=== PATIENT | female | born 1930 | race Caucasian/White ===

== ENCOUNTER 2016-09-12 15:53 | Inpatient (IN) | payer OTHER ==
[~2016-09-12] VITALS: Ht 165.1 cm; Wt 70.3 kg
--- NOTE | ~2016-09-12 | D ---
[facility] [place] [address] [address] DISCHARGE SUMMARY Name: TIBURCIO LOVING Room #: 536-P ADM IN M.R.#: [id number] Admission: 09/12/16 Attend Phys: Gino Callejas MD Discharge: Date of : 32 Report #: [id number] THIS REPORT FOR: //name// CC: Gino Callejas FINAL DIAGNOSES: 1. Chronic obstructive pulmonary disease. 2. Alzheimer disease. HOSPITAL COURSE: The patient was admitted from the office with confusion and weakness. Lab and CT were unremarkable. Chest x-ray was fairly clear. She was found to be hypoxic during the day on room air with ABG showing pO2 in the mid 50s. She had a compensated respiratory acidosis with normal pH, but pCO2 55 as well. She was placed on 1-1/2 liters during the day, and her symptoms improved. Nursing notes revealed she was alert and sitting up, eating well, and communicative. She was pleasantly forgetful. Urinalysis was negative for infection. PHYSICAL EXAMINATION: GENERAL: On the day of discharge, she was resting in bed, pleasantly confused, in no distress. VITAL SIGNS: Stable. LUNGS: Clear with no wheezing. HEART: Regular sounds. ABDOMEN: Soft. EXTREMITIES: No edema. REVIEW OF DATA: Also of note, her TSH was high, and her dose was adjusted. DISPOSITION AND INSTRUCTIONS: To be discharged to home with diet and activity as tolerated. She will be on oxygen at 1.5 liters continuously. All medicines are the same with the exception of Levoxyl changing to 137 mcg daily. Follow up with me in 2 weeks. <ELECTRONICALLY SIGNED> By: Gino Callejas MD 09/15/16 0742 0812 1834 Gino Callejas MD /nt
--- NOTE | ~2016-09-12 | H ---
[facility] [place] [address] HISTORY AND PHYSICAL Name: TIBURCIO LOVING Room #: 536-P ADM IN M.R.#: [id number] Admission: 09/12/16 Attend Phys: Gino Callejas MD Discharge: Date of : 32 Report #: [id number] THIS REPORT FOR: //name// CC: Gino THORNE physician/PCP CHIEF COMPLAINT: Weakness. HISTORY OF PRESENT ILLNESS: The patient is an 86-year-old female who was admitted from the office today for evaluation of weakness and poor intake. Her daughter was present with her when I saw her about a week ago and treated her for urinary tract infection. Urinalysis had a few nitrites and white blood cells, but nothing drastic. However, her daughter says in the last week, she has been sleeping more, lying in bed. She does not want to get up and do anything, and she has had loss of appetite. In the office, she was awake and alert, but just seemed very tired. She was leaning back in the wheelchair and just seemed disinterested in the visit. We had a problem with this about 6 or 8 months ago when she moved from her home in [place] to assisted living facility, [facility], to be closer to her daughter. After a lab workup and multiple visits and adjustment of Zoloft, she seemed to improve and stabilize. She does have a history of dementia. PAST MEDICAL HISTORY: Alzheimer disease, COPD, depression, hypothyroidism. PAST SURGICAL HISTORY: She has had knee surgery in 2005. FAMILY HISTORY: Noncontributory. SOCIAL HISTORY: She has got a 49-hnpu-yako history of smoking, but quit. No chronic alcohol use. ALLERGIES: SULFA. MEDICATIONS: Breo Ellipta ____ 1 puff daily, Synthroid 100 mcg, aspirin 81 mg, oxygen 1.5 liters at night, vitamin D, calcium, Aleve, Namzaric 28/10 mg daily, Zoloft 100 mg a day, and she completed a course of nitrofurantoin. REVIEW OF SYSTEMS: She complains of just weakness and lack of energy. Denies headache, chest pain, shortness of breath, myalgias, arthralgias, syncope or fall. OBJECTIVE: VITAL SIGNS: Blood pressure 137/81, temperature 98.5, pulse 70, and O2 sat 91% on room air. GENERAL: She was awake and alert, in no distress. HEAD AND NECK: Unremarkable. LUNGS: Distant but clear. [facility] [address] [place] [address] HISTORY AND PHYSICAL Name: TIBURCIO LOVING Room #: 536-P [facility]#: [id number] Admission: 09/12/16 Attend Phys: Gino Callejas MD Discharge: Date of : 32 Report #: [id number] HEART: Regular, no murmur. ABDOMEN: Soft, normoactive bowel sounds. EXTREMITIES: No edema. NEUROLOGIC: Global strength 3/5 throughout. ASSESSMENT: 1. Altered mental status. 2. Generalized weakness. 3. Chronic obstructive pulmonary disease, on oxygen at night. 4. Alzheimer disease. 5. Disuse myopathy. 6. Hypothyroidism. PLAN: Lab and x-ray will be obtained. We will ask for a CT of the head to rule out a vascular process. Other home medications to continue and IV fluids. SCDs for DVT prophylaxis at this point. <ELECTRONICALLY SIGNED> By: Gino Callejas MD 09/14/16 0749 1613 1814 Gino Callejas MD /nt
--- NOTE | ~2016-09-12 | EKG ---
[address] [address] ELECTROCARDIOGRAM REPORT Name: TIBURCIO LOVING Room #: 536-P ADM IN M.R.#: [id number] Admission: 09/12/16 Attend Phys: Gino Callejas MD Discharge: Date of : 32 Report #: [id number] THIS REPORT FOR: //name// [facility] Test Date: 2016-09-12 Test Time: 16:47:15 Pat Name: TIBURCIO LOVIGN Department: Room: 536 Gender: F Nutrition Program Instructor: MORGAN : 1930 Requested By: Gino Callejas Order Number: [id number] MD: Bowen Gong Measurements Intervals [place] Rate: 68 P: 34 MI: 142 QRS: -58 QRSD: 96 T: 135 QT: 472 QTc: 503 Interpretive Statements Sinus rhythm Inferior infarct, old Probable anterior infarct, age indeterminate Prolonged QT interval Compared to ECG 04/05/2016 18:04:37 Prolonged QT interval now present Electronically Signed On 09-14-2016 13:50:05 CDT by Bowen Gong [email or web address] <ELECTRONICALLY SIGNED> By: Bowen Gong MD, [facility] 09/14/16 1350 1647 164 Bowen Gong MD, [facility] /EPI
[~2016-09-12 15:53] MED LIST: BREO ELLIPTA 21 EACH IH; KEFLEX500 MG PO; LEVOTHYROXINE 0.1 MG PO; LIPITOR10 MG PO; LO-DOSE ASPIRIN81 M1 PO; NAMZARIC 14 MG1 EACH PO; OXYGEN NASAL; SERTRALINE HCL50 MG PO; VITAMIN D3400 UNIT PO
[2016-09-12 17:03] LABS: ABSOLUTE NEUTROPHILS 6.6 thou/uL (1.4-8.2); BASOPHILS 0.9 % (0.0-2.0); EOSINOPHILS 3.6 % (0.0-3.0); HEMATOCRIT 44.9 % (37.0-47.0); HEMOGLOBIN 15.2 gm/dL (12.0-15.0); LYMPHOCYTES 11.5 % (24.0-44.0); MANUAL DIFF NO; MCH 30.4 pg (26.0-34.0); MCHC 33.8 g/dL (28.0-37.0); MCV 89.9 fL (80.0-100.0); MONOCYTES 6.2 % (1.0-8.0); PLATELET COUNT 268 thou/uL (150-400); POLYS 77.8 % (36.0-66.0); RDW 13.7 % (10.5-14.5); WBC 8.5 thou/uL (4.0-11.0)
[2016-09-12 17:19] LABS: ALBUMIN 3.8 g/dL (3.4-5.0); ALKALINE PHOSPHATASE 127 U/L (46-116); ANION GAP 5 mmol/L (7-16); BUN 11 mg/dL (7-18); CALCIUM 9.2 mg/dL (8.5-10.1); CHLORIDE 105 mmol/L (98-107); CO2 32 mmol/L (21-32); CREATININE 0.9 mg/dL (0.6-1.0); GLUCOSE 110 mg/dL (74-106); POTASSIUM 3.7 mmol/L (3.5-5.1); SGOT 17 U/L (15-37); SGPT 18 U/L (30-65); SODIUM 142 mmol/L (136-145); TOTAL BILIRUBIN 0.7 mg/dL (<0.1-1.0); TOTAL PROTEIN 7.1 g/dL (6.4-8.2); TROPONIN-I < 0.04 ng/mL (<0.04-0.07)
[2016-09-12 19:08] VITALS: BP 138/60
[2016-09-13 05:08] VITALS: BP 99/78
[2016-09-13 06:21] LABS: URINE BILIRUBIN NEGATIVE (Negative); URINE BLOOD NEGATIVE (Negative); URINE COLOR YELLOW; URINE GLUCOSE-RANDOM* NEGATIVE (Negative); URINE KETONES NEGATIVE (Negative); URINE LEUKOCYTES-REFLEX NEGATIVE (Negative); URINE PROTEIN (DIPSTICK) NEGATIVE (Negative); URINE SPECIFIC GRAVITY <= 1.005 (1.003-1.035); URINE UROBILINOGEN 0.2 E.U./dl (0.2-1.0)
[2016-09-13 06:35] LABS: CALCIUM 8.7 mg/dL (8.5-10.1); CREATININE 0.8 mg/dL (0.6-1.0); POTASSIUM 3.6 mmol/L (3.5-5.1)
[2016-09-13 07:12] VITALS: BP 149/58
[2016-09-13 11:56] LABS: ABG SAMPLE TYPE ARTERIAL; BE(vivo) 5.7 mmol/L (-2 to +3); HCO3 31.5 mmol/L (22.0-26.0); LACTATE 1.62 mmol/L (0.5-2.0); O2(CT) 17.3 mL/dL (15.0-23.0); O2Hb 89.7 % (92.0-98.0); PCO2 50.2 mmHg (35.0-45.0); PO2 57.9 mmHg (80.0-100.0); pH 7.415 (7.360-7.450); sO2 90.1 % (92.0-98.0)
[2016-09-13 11:57] LABS: STICK SITE R.RADIAL
[2016-09-13 12:15] VITALS: BP 133/70
[2016-09-13 17:21] VITALS: BP 99/66
[2016-09-13 19:41] VITALS: BP 122/64
[2016-09-14 02:58] VITALS: BP 122/49
[2016-09-14 07:26] VITALS: BP 147/46
[2016-09-14] MEDS ORDERED: LEVOTHYROXIN0.137 M1 PO (07:45)
[2016-09-14 14:48] VITALS: BP 118/47
[2016-09-14 19:45] VITALS: BP 138/51
[2016-09-15 03:55] VITALS: BP 129/60
[2016-09-15] MEDS ORDERED: ZOLOFT 50 MG TA50 M1 PO (07:45)
[2016-09-15 09:00] VITALS: BP 130/64
[2016-09-15 09:52] VITALS: BP 130/64
== END 2016-09-15 13:19 | disposition home health service (06) | DRG 190 ==
LOC: 5S 15:53
PROVIDERS: Internal Medicine Geriatric Medicine
DX: J44.9 Chronic obstructive pulmonary disease, unspecified (principal); G93.41 Metabolic encephalopathy; E87.2 Acidosis; R53.1 Weakness; G30.9 Alzheimer's disease, unspecified; R09.02 Hypoxemia; F32.9 Major depressive disorder, single episode, unspecified; E03.9 Hypothyroidism, unspecified; F02.80 Dementia in other diseases classified elsewhere, unspecified severity, without behavioral disturbance, psychotic disturbance, mood disturbance, and anxiety; G72.9 Myopathy, unspecified; Z87.440 Personal history of urinary (tract) infections; Z88.2 Allergy status to sulfonamides; Z87.891 Personal history of nicotine dependence; Z79.82 Long term (current) use of aspirin; Z79.899 Other long term (current) drug therapy
CPT/HCPCS: 10785

== ENCOUNTER 2017-01-11 11:30 | Emergency (ER) | payer OTHER ==
[~2017-01-11] VITALS: Ht 165.1 cm; Wt 68.0 kg
[~2017-01-11 11:30] MED LIST changes: +LEVOTHYROXIN0.137 M1 PO; +ZOLOFT 50 MG TA50 M1 PO
[2017-01-11] MEDS ORDERED: VITAMIN D1000 UNI1 PO (11:47)
[2017-01-11] MEDS ORDERED: SERTRALINE HCL50 MG PO (11:47)
[2017-01-11] MEDS ORDERED: SYNTHROID100 MCG PO (11:47)
[2017-01-11] MEDS ORDERED: TUMS PO (11:48)
== END 2017-01-11 12:48 | disposition home or self-care (01) ==
LOC: ER 11:30
DX: S00.83XA Contusion of other part of head, initial encounter (principal); S80.02XA Contusion of left knee, initial encounter; F03.90 Unspecified dementia, unspecified severity, without behavioral disturbance, psychotic disturbance, mood disturbance, and anxiety; F32.9 Major depressive disorder, single episode, unspecified; I10 Essential (primary) hypertension; E78.00 Pure hypercholesterolemia, unspecified; J44.9 Chronic obstructive pulmonary disease, unspecified; F10.99 Alcohol use, unspecified with unspecified alcohol-induced disorder; Z88.2 Allergy status to sulfonamides; W18.30XA Fall on same level, unspecified, initial encounter; Y93.89 Activity, other specified; Y92.89 Other specified places as the place of occurrence of the external cause; Y99.8 Other external cause status

== ENCOUNTER 2018-03-28 11:43 | Emergency (ER) | payer OTHER ==
[~2018-03-28] VITALS: Ht 165.1 cm; Wt 56.7 kg
--- NOTE | ~2018-03-28 | EKG ---
[address] [address] ELECTROCARDIOGRAM REPORT Name: TIBURCIO LOVING Room #: REG [facility]#: [id number] Admission: 03/28/18 Attend Phys: Discharge: Date of : 32 Report #: [id number] THIS REPORT FOR: //name// [facility] ED Test Date: 2018-03-28 Test Time: 13:02:50 Pat Name: TIBURCIO LOVING Department: Room: Gender: F Greeting Card Maker: .... : 1930 Requested By: Sushila Moser Order Number: [id number] MD: Wan Bowers Measurements Intervals [place] Rate: 63 P: 30 RI: 153 QRS: -71 QRSD: 100 T: 96 QT: 467 QTc: 479 Interpretive Statements Sinus rhythm Inferior infarct, old Probable anterior infarct, age indeterminate Compared to ECG 09/12/2016 16:47:15 Prolonged QT interval no longer present Myocardial infarct finding still present Electronically Signed On 03-28-2018 20:49:30 TOWER CLEANER by Wan Bowers [email or web address] <ELECTRONICALLY SIGNED> By: Wan Bowers MD 03/28/18 2049 130 01 Wan Bowers MD /EPI
[~2018-03-28 11:43] MED LIST changes: +SYNTHROID100 MCG PO; +TUMS PO; +VITAMIN D1000 UNI1 PO
[2018-03-28 12:26] LABS: BASOPHILS 0.7 % (0.0-2.0); EOSINOPHILS 3.3 % (0.0-3.0); HEMATOCRIT 44.6 % (37.0-47.0); HEMOGLOBIN 14.9 gm/dL (12.0-15.0); MCH 29.7 pg (26.0-34.0); MCHC 33.4 g/dL (28.0-37.0); MCV 89.1 fL (80.0-100.0); MONOCYTES 6.2 % (1.0-8.0); PLATELET COUNT 236 thou/uL (150-400); POLYS 62.8 % (36.0-66.0); RDW 13.3 % (10.5-14.5); WBC 6.3 thou/uL (4.0-11.0)
[2018-03-28 12:38] LABS: APTT 27.3 Seconds (24.5-32.8); PROTIME 10.3 Seconds (9.3-11.4)
[2018-03-28 14:45] LABS: URINE BILIRUBIN NEGATIVE (Negative); URINE BLOOD 1+ (Negative); URINE CLARITY SL CLOUDY; URINE COLOR YELLOW; URINE GLUCOSE-RANDOM* NEGATIVE (Negative); URINE KETONES NEGATIVE (Negative); URINE LEUKOCYTES 3+ (Negative); URINE NITRITE NEGATIVE (Negative); URINE PROTEIN (DIPSTICK) NEGATIVE (Negative); URINE SPECIFIC GRAVITY <= 1.005 (1.005-1.035); URINE UROBILINOGEN 0.2 E.U./dl (0.2-1.0)
[2018-03-28 14:51] LABS: SQUAMOUS 0-3 Few /LPF (0-3); URINE RBC 3-10 Few /HPF (0-2); URINE WBC >25 Many /HPF (0-5)
[2018-03-28 14:52] LABS: BACTERIA >30 Many /HPF (None Seen); CASTS None Seen /LPF (None Seen); CRYSTALS None Seen /LPF (None Seen)
[2018-03-28 15:37] LABS: CALCIUM 9.3 mg/dL (8.5-10.1); POTASSIUM 3.5 mmol/L (3.5-5.1)
[2018-03-28] MEDS ORDERED: ESCITALOPRAM OX20 MG PO (16:00)
[2018-03-28 22:13] VITALS: BP 149/59
== END 2018-03-28 22:14 | disposition short-term general hospital (02) ==
LOC: ER 11:43
PROVIDERS: Student in an Organized Health Care Education/Training Program
DX: I21.9 Acute myocardial infarction, unspecified (principal); R53.1 Weakness; H54.62 Unqualified visual loss, left eye, normal vision right eye; F03.90 Unspecified dementia, unspecified severity, without behavioral disturbance, psychotic disturbance, mood disturbance, and anxiety; F32.9 Major depressive disorder, single episode, unspecified; E78.00 Pure hypercholesterolemia, unspecified; J44.9 Chronic obstructive pulmonary disease, unspecified; I11.0 Hypertensive heart disease with heart failure; I50.30 Unspecified diastolic (congestive) heart failure; Z88.2 Allergy status to sulfonamides

== ENCOUNTER 2018-07-10 07:26 | Emergency (ER) | payer OTHER ==
[~2018-07-10] VITALS: Ht 160 cm; Wt 68.0 kg
[~2018-07-10 07:26] MED LIST changes: +ESCITALOPRAM OX20 MG PO
[2018-07-10] MEDS ORDERED: NORVASC2.5 MG PO (09:58)
[2018-07-10] MEDS ORDERED: LIPITOR 20 MG T20 M1 PO (09:58)
[2018-07-10] MEDS ORDERED: CLOPIDOGREL75 MG PO (09:59)
[2018-07-10] MEDS ORDERED: NAMZARIC 28 MG1 EACH PO (10:00)
[2018-07-10 10:16] VITALS: BP 167/69
--- NOTE | 2018-07-10 11:02 | EKG ---
[address] [address] ELECTROCARDIOGRAM REPORT Name: INDERTIBURCIO C Room #: [facility]#: [id number] ������������������ Admission: 07/10/18 ������������������ Attend Phys: Discharge: 07/10/18 ������������������ Date of : 32 Report #: [id number] ����������������������������������������������������������������� [id number] THIS REPORT FOR: //name// [facility] ED Test Date: 2018-07-10 Test Time: 07:57:57 Pat Name: TIBURCIO LOVING Department: Room: Gender: F Battery Tester Field: KELLI : 1930 Requested By: Usman Cook Order Number: [id number] MD: Flynn Michelle Measurements Intervals [place] Rate: 54 P: 0 NV: 134 QRS: -59 QRSD: 101 T: -10 QT: 677 QTc: 642 Interpretive Statements Sinus rhythm Inferior infarct, old Anteroseptal infarct, age indeterminate Prolonged QT interval Baseline wander in lead(s) I,aVL Compared to ECG 03/28/2018 13:02:50 Prolonged QT interval now present Myocardial infarct finding still present Electronically Signed On 07-10-2018 11:02:26 CDT by Flynn Michelle [email or web address] ��������������������������������������������� <ELECTRONICALLY SIGNED> ���������������������������������������� By: Flynn Michelle MD ��������������������������������������������� 07/10/18 1102 0757 0757 Flynn Michelle MD /EPI
== END 2018-07-10 10:20 | disposition home or self-care (01) ==
LOC: ER 07:26
DX: S01.81XA Laceration without foreign body of other part of head, initial encounter (principal); F03.90 Unspecified dementia, unspecified severity, without behavioral disturbance, psychotic disturbance, mood disturbance, and anxiety; F32.9 Major depressive disorder, single episode, unspecified; I10 Essential (primary) hypertension; E07.9 Disorder of thyroid, unspecified; E78.00 Pure hypercholesterolemia, unspecified; J44.9 Chronic obstructive pulmonary disease, unspecified; Z88.2 Allergy status to sulfonamides; W07.XXXA Fall from chair, initial encounter; Y93.89 Activity, other specified; Y92.89 Other specified places as the place of occurrence of the external cause; Y99.8 Other external cause status

== ENCOUNTER 2018-12-15 09:04 | Emergency (ER) | payer OTHER ==
[~2018-12-15] VITALS: Ht 165.1 cm; Wt 74.8 kg
--- NOTE | ~2018-12-15 | EMS ---
[address] [address] EMS Patient Care Report Name: TIBURCIO LOVING Room #: REG FR[facility]LIN Agarwal#: [id number] Admission: 12/15/18 Attend Phys: Discharge: Date of : 32 Report #: [id number] THIS REPORT FOR: //name// Report Transmitted: 12/15/2018 09:46 EMS Care Summary [place], [place]/[facility] Incident [phone] @ 12/15/2018 08:34 Incident Location [address] Patient TIBURCIO LOVING Female, 88 Years 1930 Patient Address [id number] [place] [address] [address] [id number] Patient History Dementia,Hypertension,Stroke/CVA,Hyperlipidemia,Urinary Tract Infection (UTI), Patient Allergies Sulfa, Patient Medications Atorvastatin, Clopidogrel, Levothyroxine, Amlodipine, Chief Complaint WEAKNESS Disposition Transported No Lights/[place] Dispatch Reason Unconscious/Fainting Transported To [facility] Narrative SCENE: ON ARRIVAL PT FOUND SITTING UPRIGHT ON LIVING ROOM FLOOR OF ADDRESS PROVIDED. P28 AND FACILITY STAFF ON SCENE. P28 REPORTS PT INITIAL OXYGEN SAT WAS 90% AND THEY PLACED PT ON NC AT 3LPM, RAISING HER OXYGEN SAT TO 99%. PT IS [address] [address] EMS Patient Care Report Name: TIBURCIO LOVING Room #: REG FRANKLIN Agarwal#: [id number] Admission: 12/15/18 Attend Phys: Discharge: Date of : 32 Report #: [id number] AWAKE AND ALERT WITH A GCS OF 13/14. 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 STAFF REPORTS PT HAS A HISTORY OF DEMENTIA WITH NO CHANGE IN MENTATION. PT C/O WEAKNESS AND NAUSEA FOR APPROXIMATELY ONE HOUR. [address] OBTAINED SHOWS NO [address] ELEVATION. PT ABLE TO STAND AND SIT ON EMS STRETCHER. AMBULANCE: NO HOSPITAL ON PT RECORD. EMS DID NOT SEE SUITABLE VEINS FOR IV. VITALS MONITORED THROUGHOUT TRANSPORT. NO CHANGES IN PT STATUS EN ROUTE. Initial Vitals @08:45P: 71,R: 16,BP: 92/57,GCS: 13,Revised Trauma: 12, @08:47P: 69,R: 18,BP: 102/69,GCS: 15,Glucose: 140,Revised Trauma: 12, @08:55P: 71,R: 18,BP: 135/57,Pain: 2/10,GCS: 14,Revised Trauma: 12, @08:48P: 69,R: 18,GCS: 13, Assessments @08:44MENTAL:Person Oriented,Event Oriented,SKIN:HEENT:Eyes: Left: Blind,Head/Face: No Abnormalities,Neck/Airway: No Abnormalities,LUNG SOUNDS:General: Nausea,ABDOMEN:General: Nausea,PELVIS//GI:No Abnormalities,EXTREMITIES:Left Arm: No Abnormalities,Right Arm: No Abnormalities,Left Leg: No Abnormalities,Right Leg: No Abnormalities,PULSE:NEURO:No Abnormalities,@08:57MENTAL:Event Oriented,Person Oriented,SKIN:HEENT:Eyes: Left: Blind,Head/Face: No Abnormalities,LUNG SOUNDS:General: Nausea,Left Upper: No Abnormalities,Right Upper: No Abnormalities,Left Lower: No Abnormalities,Right Lower: No Abnormalities,ABDOMEN:General: Nausea,Left Upper: No Abnormalities,Right Upper: No Abnormalities,Left Lower: No Abnormalities,Right Lower: No Abnormalities,PELVIS//GI:No Abnormalities,EXTREMITIES:Left Arm: No Abnormalities,Right Arm: No Abnormalities,Left Leg: No Abnormalities,Right Leg: No Abnormalities,PULSE:NEURO:No Abnormalities, Impression Generalized Weakness Procedures @08:43ALS AssessmentResponse: UnchangedSucceeded@09:073-Lead ECGResponse: UnchangedSucceeded@09:07StretcherResponse: Unchanged@08:4812-Lead ECG Timeline 08:33,Call Received 08:33,Dispatch Notified 08:34,Dispatched 08:35,En Route 08:41,On Scene 08:43,At Patient 08:43,ALS Assessment,Response: UnchangedSucceeded, 08:45,BP: 92/57 M,PULSE: 71,RR: 16 R,SPO2: Ox,ETCO2: ,BG: ,PAIN: ,GCS: 13, [facility] [address] [place] [address] EMS Patient Care Report Name: TIBURCIO LOVING Room #: REG Any#: [id number] Admission: 12/15/18 Attend Phys: Discharge: Date of : 32 Report #: [id number] 08:47,BP: 102/69 M,PULSE: 69,RR: 18 R,SPO2: Ox,ETCO2: ,B,PAIN: ,GCS: 15, 08:48,12-Lead ECG, 08:48,BP: / M,PULSE: 69,RR: 18 R,SPO2: Ox,ETCO2: ,BG: ,PAIN: ,GCS: 13, 08:55,BP: 135/57 M,PULSE: 71,RR: 18 R,SPO2: Ox,ETCO2: ,BG: ,PAIN: 2,GCS: 14, 08:55,Depart Scene 09:01,At Destination 09:07,3-Lead ECG,Response: UnchangedSucceeded, 09:07,Stretcher,Response: Unchanged 09:44,Call Closed Disclaimer v1.1 Copyright 2019 [employer] This EMS Care Summary contains data elements from the applicable legal record (which may be displayed differently). It is designed to provide pertinent information for the following purposes: continuity of care, clinical quality, and state data reporting. The complete legal record is available to ED staff and administrators of the receiving hospital in [employer]'s Patient Tracker. All data is provided "as is."
[~2018-12-15 09:04] MED LIST changes: +CLOPIDOGREL75 MG PO; +LIPITOR 20 MG T20 M1 PO; +NAMZARIC 28 MG1 EACH PO; +NORVASC2.5 MG PO
[2018-12-15 09:28] LABS: ABSOLUTE NEUTROPHILS 9.3 thou/uL (1.4-8.2); BASOPHILS 0.4 % (0.0-2.0); EOSINOPHILS 0.2 % (0.0-3.0); HEMATOCRIT 42.3 % (37.0-47.0); HEMOGLOBIN 14.2 gm/dL (12.0-15.0); MCH 30.3 pg (26.0-34.0); MCHC 33.5 g/dL (28.0-37.0); MCV 90.3 fL (80.0-100.0); MONOCYTES 4.3 % (1.0-8.0); PLATELET COUNT 214 thou/uL (150-400); POLYS 83.1 % (36.0-66.0); RBC 4.68 mil/uL (4.20-5.00); RDW 13.4 % (10.5-14.5); WBC 11.2 thou/uL (4.0-11.0)
[2018-12-15 09:37] LABS: ANION GAP 9 mmol/L (7-16); BUN 12 mg/dL (7-18); CALCIUM 9.3 mg/dL (8.5-10.1); CHLORIDE 102 mmol/L (98-107); CO2 29 mmol/L (21-32); CREATININE 1.1 mg/dL (0.6-1.0); GLUCOSE 159 mg/dL (74-106); POTASSIUM 3.8 mmol/L (3.5-5.1); SODIUM 140 mmol/L (136-145)
[2018-12-15 09:47] LABS: ALBUMIN 3.5 g/dL (3.4-5.0); MAGNESIUM 1.6 mg/dL (1.8-2.4); SGOT 17 U/L (15-37); SGPT 21 U/L (30-65); TOTAL BILIRUBIN 0.6 mg/dL (<0.1-1.0); TROPONIN-I <0.06 ng/mL (<0.06)
[2018-12-15 10:53] LABS: URINE BILIRUBIN NEGATIVE (Negative); URINE BLOOD TRACE (Negative); URINE CLARITY CLEAR; URINE COLOR YELLOW; URINE GLUCOSE-RANDOM* NEGATIVE (Negative); URINE KETONES NEGATIVE (Negative); URINE LEUKOCYTES-REFLEX TRACE (Negative); URINE NITRITE-REFLEX NEGATIVE (Negative); URINE PROTEIN (DIPSTICK) TRACE (Negative); URINE UROBILINOGEN 0.2 E.U./dl (0.2-1.0)
[2018-12-15 12:41] VITALS: BP 137/53
--- NOTE | 2018-12-16 08:30 | EKG ---
[address] [address] ELECTROCARDIOGRAM REPORT Name: [facility]URCIO L[facility]ING [id number] Admission: 12/15/18 Attend Phys: Discharge: 12/15/18 Date of : 32 Report #: [id number] THIS REPORT FOR: //name// [facility] ED Test Date: 2018-12-15 Test Time: 09:09:17 Pat Name: TIBURCIO LOVING Department: Room: Gender: F Basket Machine Operator: : 1930 Requested By: Nathaniel Mccarty Order Number: [id number] MD: Wan Bowers Measurements Intervals [place] Rate: 63 P: 49 AL: 148 QRS: -63 QRSD: 107 T: 128 QT: 544 QTc: 558 Interpretive Statements Sinus rhythm Inferior infarct, old Anterior infarct, age indeterminate Compared to ECG 07/10/2018 07:57:57 No significant changes Electronically Signed On 12-16-2018 8:29:48 CDT by Wan Bowers [email or web address] <ELECTRONICALLY SIGNED> By: Wan Bowers MD 12/16/18828 8 8 Wan Bowers MD /EARL
== END 2018-12-15 12:41 | disposition home or self-care (01) ==
LOC: ER 09:04
PROVIDERS: Emergency Medicine
DX: R55 Syncope and collapse (principal); R53.1 Weakness; F03.90 Unspecified dementia, unspecified severity, without behavioral disturbance, psychotic disturbance, mood disturbance, and anxiety; F32.9 Major depressive disorder, single episode, unspecified; I10 Essential (primary) hypertension; E78.00 Pure hypercholesterolemia, unspecified; J44.9 Chronic obstructive pulmonary disease, unspecified; Z88.2 Allergy status to sulfonamides

== ENCOUNTER 2020-04-14 15:43 | Inpatient (IN) | payer OTHER ==
[~2020-04-14] VITALS: Ht 162.6 cm; Wt 53.5 kg
[2020-04-14 15:54] VITALS: BP 130/61
[2020-04-14 16:42] LABS: URINE BLOOD 3+ (Negative); URINE CLARITY SL CLOUDY; URINE COLOR YELLOW; URINE GLUCOSE-RANDOM* NEGATIVE (Negative); URINE KETONES TRACE (Negative); URINE PROTEIN (DIPSTICK) 1+ (Negative); URINE SPECIFIC GRAVITY >= 1.030 (1.005-1.035); URINE UROBILINOGEN 0.2 E.U./dl (0.2-1.0)
[2020-04-14 16:54] LABS: ICTOTEST (BILI CONFIRMATORY) Negative (Negative); URINE BILIRUBIN NEGATIVE (Negative); URINE LEUKOCYTES-REFLEX 2+ (Negative); URINE NITRITE-REFLEX POSITIVE (Negative)
[2020-04-14 16:55] LABS: MUCUS >6 Heavy strn/LPF (None Seen); SQUAMOUS 4-10 Moderate /LPF (0-3)
[2020-04-14 16:56] LABS: CASTS None Seen /LPF (None Seen); CRYSTALS None Seen /LPF (None Seen); WBC CLUMPS Few (None Seen)
[2020-04-14 16:57] LABS: BACTERIA-REFLEX 1-9 Few /HPF (None Seen); RENAL EPITHELIAL CELLS 4-10 Moderate /LPF (None Seen); URINE RBC 3-10 Few /HPF (0-2)
[2020-04-14 17:49] LABS: ABSOLUTE NEUTROPHILS 4.1 thou/uL (1.4-8.2); BASOPHILS 0.8 % (0.0-2.0); HEMATOCRIT 40.8 % (37.0-47.0); HEMOGLOBIN 13.5 gm/dL (12.0-15.0); LYMPHOCYTES 26.2 % (24.0-44.0); MCH 30.4 pg (26.0-34.0); MCHC 33.2 g/dL (28.0-37.0); MCV 91.5 fL (80.0-100.0); MONOCYTES 6.6 % (1.0-8.0); PLATELET COUNT 238 thou/uL (150-400); POLYS 65.4 % (36.0-66.0); RBC 4.45 mil/uL (4.20-5.00); RDW 13.8 % (10.5-14.5); WBC 6.2 thou/uL (4.0-11.0)
[2020-04-14 17:56] LABS: ANION GAP 8 mmol/L (7-16); BUN 23 mg/dL (7-18); CALCIUM 9.2 mg/dL (8.5-10.1); CHLORIDE 107 mmol/L (98-107); CO2 27 mmol/L (21-32); GLUCOSE 82 mg/dL (74-106); POTASSIUM 3.9 mmol/L (3.5-5.1); SODIUM 142 mmol/L (136-145)
[2020-04-14 18:06] LABS: SGOT 16 U/L (15-37); SGPT 15 U/L (14-59); TOTAL BILIRUBIN 0.9 mg/dL (0.2-1.0); TOTAL PROTEIN 6.4 g/dL (6.4-8.2); TROPONIN-I <0.06 ng/mL (<0.06)
[2020-04-14 19:47] VITALS: BP 125/63
[2020-04-14 19:55] VITALS: BP 133/58
[2020-04-14 20:30] VITALS: BP 130/50
--- NOTE | 2020-04-15 03:54 | NUR ---
ADMIT PT ADMITTED TO ROOM 450 VIA ED FOR AMS AND UTI. PT LETHARGIC WILL NOT RESPOND TO QUESTIONS, OR COMMANDS. VITALS SIGNS STABLE. SKIN TEAR TO LEFT HAND PHOTOGRAPHED AND BARRIER CREAM APPLIED NO OPEN AREA NOTED, BILATERAL BUTTUCKS ARE RED THAT IS NOT BLANCHABLE PHOTOGRAPHED AND BARRIER CREAM APPLIED PT TURNED Q2HRS. IVF'S INFUSING ORDERED. WAS GIVEN ANTIBIOTICS IN ED. CONTINUE TO MONITOR.
[2020-04-15 08:00] VITALS: BP 137/58
--- NOTE | 2020-04-15 08:54 | EKG ---
[address] [address] ELECTROCARDIOGRAM REPORT Name: TIBURCIO LOVING Room #: 450-P ADM IN M.R.#: [id number] Admission: 04/14/20 Attend Phys: Chasity Bhat MD Discharge: Date of : 32 Report #: [id number] [facility] ED Test Date: 2020-04-14 Test Time: 17:08:28 Pat Name: TIBURCIO LOVING Department: Room: 450 Gender: F Naturalization Examiner: nasir : 1930 Requested By: Rylee Herbert Order Number: [id number] MD: Carl Judd Measurements Intervals [place] Rate: 59 P: 43 [place]: 145 QRS: -70 QRSD: 99 T: 83 QT: 532 QTc: 528 Interpretive Statements Sinus rhythm Inferior infarct, old Probable anterior infarct, age indeterminate Prolonged QT interval Compared to ECG 12/15/2018 09:09:17 Prolonged QT interval now present Myocardial infarct finding still present Electronically Signed On 04-15-2020 8:54:46 TOOL CRIB SUPERVISOR by Carl Judd [email or web address] <ELECTRONICALLY SIGNED> By: Carl Judd MD, [facility] 04/15/20 0854 07 07 Carl Judd MD, [facility] /EPI
[2020-04-15 15:42] VITALS: BP 133/61
[2020-04-15 19:08] VITALS: BP 135/66
--- NOTE | 2020-04-15 22:14 | NUR ---
ASSUMED CARE OF PT AT 0700. PT IS ALERT AND SLEEPING MOST OF THE SIFT. VITAL SIGNS ARE STABLE. IV TO RIGHT FOREARM RUNNING ORDERED FLUIDS. SPOKE WITH FAMILY IN AM AND PROVIDED UPDATE. PT HAD POOR DIETARY INTAKE AND REQUIRED TOTAL ASSIST WITH EATING. TURNS Q2H AND IS INCONTINENT OF BLADDER. FALL PRECAUTIONS IN PLACE AND NURSING WILL CONTINUE TO MONITOR.
--- NOTE | 2020-04-16 03:07 | NUR ---
PROGRESS PT AWAKE AND RESPONSIVE TODAY, EYES OPEN. SAT UP IN BED AND FED HERSELF HER DINNER NO SWALLOWING DIFFICULTY NOTED. PT DID NOT RESPOND VERBALLY BUT DID MAKE EYE CONTACT AND FOLLOWED COMMANDS WITH BED CHANGE. REMAINS INCONTINENT OF URINE NO BM THIS SHIFT CONTINUE POC.
[2020-04-16 07:22] VITALS: BP 154/67
[2020-04-16 09:04] LABS: EOSINOPHILS 1.8 % (0.0-3.0); HEMATOCRIT 40.4 % (37.0-47.0); HEMOGLOBIN 13.3 gm/dL (12.0-15.0); LYMPHOCYTES 23.4 % (24.0-44.0); MCH 30.3 pg (26.0-34.0); MCHC 32.8 g/dL (28.0-37.0); MCV 92.5 fL (80.0-100.0); PLATELET COUNT 234 thou/uL (150-400); POLYS 69.8 % (36.0-66.0); RBC 4.37 mil/uL (4.20-5.00); RDW 13.5 % (10.5-14.5); WBC 5.7 thou/uL (4.0-11.0)
[2020-04-16 09:11] LABS: CALCIUM 8.6 mg/dL (8.5-10.1); CREATININE 0.8 mg/dL (0.6-1.0); POTASSIUM 3.4 mmol/L (3.5-5.1)
[2020-04-16] MEDS ORDERED: SYNTHROID112 MC1 PO (10:34)
[2020-04-16] MEDS ORDERED: VITAMIN B-121000 MC2 PO (10:35)
[2020-04-16 11:29] LABS: PHOSPHORUS 2.9 mg/dL (2.5-4.9)
--- NOTE | 2020-04-16 14:00 | NUR ---
PT ADMITTED RELATED TO AMS/UTI. CM REVIEWED CHART AND SPOKE WITH CARE TEAM. CM CALLED AND SPOKE WITH PT'S DTR THIS AM. SHE INDICATED THAT PT RESIDES IN ASSISTED LIVING AT [facility]. SHE INDICATED THAT PT HAS A FWW AND A WC TO ASSIST WITH MOBILTY. SHE INDICATED THAT PT IS SEEN BY MOTION PICTURE SCENE BUILDER AT FACILITY. DTR STATED THATPT NEEDED ASSISTANCE WITH ALL ADLS. DTR SAID THAT PT HAD STROKE ABOUT A YEAR AGO AND HADE BEEN AT [facility]. PT HAD GONE FROM THER TO A SNF. SHE STATED THAT SHE HAD HH IN PAST BUT CAN'T RECALL PROVIDER. DTR INDICATED THAT SHE WASN'T SURE THEY WOULD BE INTERESTED IN SNF OR POST ACUTE REHAB UPON DC. MILDRED CALLED AND SPOKE WITH NURSE AT [facility] AND SHE INDICATED THAT PT FLUCTUATES BUT THAT SHE SOMETIMES NEEDS 2 PEOPLE TO ASSIST WITH TRANSFERS FROM BED TO CHAIR. NURSE INDICATED THAT PT SPENDS MOST TIME IN HER RECLINCER AND TAHT RECENTLY SHE HAD NEEDED ASSISTANCE WITH EATING HER MEALS. CM TO FOLLOW INDICATED WITH DC PLANNING. PT AND OT ORDERED.
[2020-04-16 15:32] VITALS: BP 151/75
--- NOTE | 2020-04-16 18:34 | NUR ---
Assumed pt care at 7am.Pt in bed sleeping but arousable.Assessment completed. vss.Assiste pt with tray setup.Fair appetite noted.Dr Meredith here order noted. Therapist transfered pt to chair after lunch. No verbal c/o.Fall bundle in place.Will continue to monitor.
[2020-04-16 20:37] VITALS: BP 149/60
[2020-04-17 06:13] LABS: HEMATOCRIT 38.4 % (37.0-47.0); HEMOGLOBIN 12.6 gm/dL (12.0-15.0); MCH 29.9 pg (26.0-34.0); MCHC 32.8 g/dL (28.0-37.0); MCV 91.2 fL (80.0-100.0); RBC 4.21 mil/uL (4.20-5.00); WBC 5.1 thou/uL (4.0-11.0)
[2020-04-17 06:18] LABS: CALCIUM 8.2 mg/dL (8.5-10.1); CREATININE 0.7 mg/dL (0.6-1.0)
--- NOTE | 2020-04-17 06:43 | NUR ---
PROGRESS PT PLEASANT AND COOPERATIVE ATE AN ICE CREAM AND TOOK MEDICATIONS THEN SLEPT INCONTINENT OF URINE NO BM THIS SHIFT. PT REPOSITIONS SELF SOMETIMES MAY NEED TO ENCOURAGE HER TO TURN. LUNGS CLEAR VSS CONTINUE POC.
[2020-04-17 07:16] VITALS: BP 153/57
[2020-04-17 15:30] VITALS: BP 119/54
--- NOTE | 2020-04-17 16:06 | NUR ---
[facility] ASSESSED PT AND INDICATED THAT SHE ISN'T APPROPRIATE FOR [facility] ACUTE INPATIENT REHAB. CM CALLED AND SPOKE WITH PT'S DTR. SHE INDICATED THAT IF PT CAN'T GO TO [facility] THAT SHE WOULD PREFER PT TO RETURN TO [facility] WITH SERVICES ONCE MEDICALLY STABLE. SHE INDICATED PT HAD GONE SKILLED IN PAST AND THEY BOTH HAD A BAD EXPERIENCE. CM NOTIFIED PHYSICIAN OF PREFERENCE. REFERRAL TO BE SENT TO [facility] FOR PROBABLE SERVICES UPON DC.
--- NOTE | 2020-04-17 16:07 | NUR ---
Assumed pt care at 7am.Assessment completed.vss.Assisted pt with feeding at breakfast.Fair appetite.Dr Meredith here,order noted.Piv went bad and iv team paged for replacement but too busy to come .Later came this afternoon and new piv placed.Pt was up in chair for breakfast and lunch but now back in bed. Will continue to monitor.
[2020-04-17 19:29] VITALS: BP 127/60
[2020-04-18 08:08] VITALS: BP 141/68
--- NOTE | 2020-04-18 08:24 | NUR ---
progress pt more alert responds verbally to some questions needs assist with adl's non ambulatory. denies pian ivf's as ordered continue poc.
[2020-04-18 11:48] VITALS: BP 141/68
[2020-04-18 11:50] VITALS: BP 141/68
[2020-04-18] MEDS ORDERED: SYNTHROID125 MC1 PO (12:08)
[2020-04-18] MEDS ORDERED: VITAMIN D325 MC1 PO (12:08)
[2020-04-18] MEDS ORDERED: KEFLEX500 M1 PO (12:08)
[2020-04-18 12:18] VITALS: BP 141/68
--- NOTE | 2020-04-18 14:31 | NUR ---
PT IS A RESIDENT AT [facility] SPOKE WITH ADM LIASON THEY WILL NEED A COVID TEST DONE BUT WILL BE ABLE TO STILL TAKE PT BACK TODAY AND WILL QUARANTINE TIL RESULTS ARE OBTAINED. PT NEEDING HH AT DC FAXED REFERRAL TO [facility] SPOKE WITH VERNA IN INTAKE THEY CAN ACCEPT AND WILL ALSO NEED COVID RESULTS FAXED TO THEM THEY WILL START HH TIL THEY RECEIVED RESULTS. [facility] ARRANGED TRANSPORT FOR 1600 TODAY. UNIT NOTIFIED AND CHART COPY PER US. FAXED DC ORDERS/SUMMARY TO FACILITY AND [facility] RECEIVED CONFIRMATION. FAMILY NOTIFIED BY DENICE.
[2020-04-18 15:00] VITALS: BP 130/64
--- NOTE | 2020-04-18 16:45 | NUR ---
Dtr notified of pt's return to [facility] today with HH orders. Dtr in agreement of the dc plan. [facility] has arranged for w/c van transport at 4-5pm today. They will take the pt back and she will be quarintining until her covid results come back. The pt has been swabed and nursing anticipates test results by this evening. They will fax them to [facility] and call the charge nurse. Fax cover sheet provided. They will fax them to [facility] as well. [facility] can start hh services once the test results are rec'd. Chart copy completed to send with the pt and nursing to call report.
--- NOTE | 2020-04-18 17:00 | NUR ---
Assumed pt care at 7am.Pt in bed sleeping at the start of shift but arousable. Assessment completed.vss.Dr Meredith here,dc order noted.geriatric case manager arranged for transport and home health.Dc summary compile and reviewed with pt.RX copy and sent with pt at dc.Pt unable to sign dc paper.At 1700,pt dc to [facility]i [facility].Covid swab done today will be fax to pt facility and home health when available.
--- NOTE | 2020-04-19 09:59 | NUR ---
FAXED COVID RESULTS TO [facility] AND [facility] RECEIVED CONFIRMATION.
== END 2020-04-18 17:14 | disposition home health service (06) | DRG 689 ==
LOC: ER 15:43 → EROBS 19:58 → 4W 19:58
PROVIDERS: Hospitalist; Physician Assistant; ADMIT Hospitalist; ATTEND Hospitalist
DX: N39.0 Urinary tract infection, site not specified (principal); G93.41 Metabolic encephalopathy; J96.11 Chronic respiratory failure with hypoxia; J44.9 Chronic obstructive pulmonary disease, unspecified; Z20.828 Contact with and (suspected) exposure to other viral communicable diseases; F32.9 Major depressive disorder, single episode, unspecified; I10 Essential (primary) hypertension; E78.00 Pure hypercholesterolemia, unspecified; E78.5 Hyperlipidemia, unspecified; G30.9 Alzheimer's disease, unspecified; F02.80 Dementia in other diseases classified elsewhere, unspecified severity, without behavioral disturbance, psychotic disturbance, mood disturbance, and anxiety; E03.9 Hypothyroidism, unspecified; E55.9 Vitamin D deficiency, unspecified; Z86.73 Personal history of transient ischemic attack (TIA), and cerebral infarction without residual deficits; Z99.81 Dependence on supplemental oxygen; Z88.2 Allergy status to sulfonamides; Z87.891 Personal history of nicotine dependence; Z79.899 Other long term (current) drug therapy
CPT/HCPCS: 10040

== ENCOUNTER 2021-01-21 00:40 | Emergency (ER) | payer OTHER ==
[~2021-01-21] VITALS: Ht 160 cm; Wt 69.4 kg
--- NOTE | ~2021-01-21 | EMS ---
[place] [address] EMS Patient Care Report Name: TIBURCIO LOVING Room #: DEP FRANKLIN Agarwal#: [id number] Admission: 01/21/21 Attend Phys: Discharge: 01/21/21 Date of : 34 Report #: [id number] THIS REPORT FOR: //name// Report Transmitted: 01/23/2021 10:19 EMS Care Summary [place], [place]/[facility] Incident [id number] @ 01/20/2021 23:51 Incident Location [id number] [place] [address] 148 Patient TIBURCIO LOVING Female, 89 Years 1930 Patient Address [address] [place] [address] Patient History Dementia,Urinary Tract Infection (UTI), Patient Allergies Sulfa, Patient Medications Calcium, Clopidogrel, Levothyroxine, Atorvastatin, Amlodipine, Chief Complaint Contusion Disposition Transported No Lights/[place] Dispatch Reason Falls Transported To [facility] Narrative M19 called to a patient who fell Upon arrival to scene was noted to be arriving on scene to a senior care. Was [address] [address] EMS Patient Care Report Name: TIBURCIO LOVING Room #: DEP FRANKLIN Staton[place]ore#: [id number] Admission: 01/21/21 Attend Phys: Discharge: 01/21/21 Date of : 34 Report #: [id number] greeted by staff on scene that directed us to the patient room. Upon arrival to the patient room patient was noted to be an 89 y/o female patient. Patient was noted to be sleeping in bed. Staff states when they were doing there rounds this evening they found the patient laying on the floor. Patient was noted to have a contusion above her left eye. Patient was also noted to have some swelling in her left hand possible finger injury. Patient was noted to be alert but non verbal to her normal per staff on scene. Patient was moved to the cot via sheet drag. Patient was noted to have equal and reactive pupils. Patient was noted to be tracking with her eyes and was able to follow basic commands. Patient was secured to the cot and moved to the ambulance. Vitals were taken and noted. Patient transport began to [facility]. Patient transport was unremarkable. Patient remained vitally stable. Hospital was notified of incoming patient. Upon arrival to the receiving facility patient was unloaded from the ambulance and moved into the ED. Patient was checked in and patient care report was given and transferred to the receiving facility. Signatures were obtained. EMS cleared and returned to service. Initial Vitals @00:15P: 65,R: 14,BP: 189/73,Pain: 0/10,GCS: 12,Glucose: 117,SpO2: 98,Revised Trauma: 11, @00:30P: 63,R: 14,BP: 173/76,Pain: 0/10,GCS: 12,SpO2: 94,Revised Trauma: 11, Assessments @00:12MENTAL:Confused,SKIN:HEENT:LUNG SOUNDS:ABDOMEN:PELVIS//GI:EXTREMITIES:Capillary Refill: Right Upper: < 2 Sec,PULSE:Radial: 2+ Normal,NEURO:@00:35MENTAL:Confused,SKIN:HEENT:LUNG SOUNDS:ABDOMEN:PELVIS//GI:EXTREMITIES:Capillary Refill: Right Upper: < 2 Sec,PULSE:Radial: 2+ Normal,NEURO: Impression Injury of Head Procedures @00:10ALS AssessmentResponse: UnchangedSucceeded Timeline 23:50,Call Received 23:50,Dispatch Notified 23:51,Dispatched 23:51,En Route 00:07,On Scene 00:09,At Patient 00:10,ALS Assessment,Response: UnchangedSucceeded, 00:15,BP: 189/73 M,PULSE: 65,RR: 14 R,SPO2: 98 Ox,ETCO2: ,B,PAIN: 0,GCS: 12, 00:30,[place] [address] EMS Patient Care Report Name: TIBURCIO LOVING Room #: DEP Any#: [id number] Admission: 01/21/21 Attend Phys: Discharge: 01/21/21 Date of : 34 Report #: [id number] 00:30,BP: 173/76 M,PULSE: 63,RR: 14 R,SPO2: 94 Ox,ETCO2: ,BG: ,PAIN: 0,GCS: 12, 00:37,At Destination 00:53,Call Closed Disclaimer v1.1 Copyright 2020 [employer] This EMS Care Summary contains data elements from the applicable legal record (which may be displayed differently). It is designed to provide pertinent information for the following purposes: continuity of care, clinical quality, and state data reporting. The complete legal record is available to ED staff and administrators of the receiving hospital in [employer] Patient Tracker. All data is provided "as is."
[~2021-01-21 00:40] MED LIST changes: +KEFLEX500 M1 PO; +SYNTHROID112 MC1 PO; +SYNTHROID125 MC1 PO; +VITAMIN B-121000 MC2 PO; +VITAMIN D325 MC1 PO
[2021-01-21] MEDS ORDERED: CALCIUM ACETAT667 MG PO (02:46)
[2021-01-21] MEDS ORDERED: LEXAPRO 10 MG T10 M2 PO (02:46)
[2021-01-21 05:24] VITALS: BP 146/58
--- NOTE | 2021-01-21 12:38 | EKG ---
[address] [address] [address] [facility] [place] [address] ELECTROCARDIOGRAM REPORT Name: TIBURCIO LOVING Room #: [facility]#: [id number] Admission: 01/21/21 Attend Phys: Discharge: 01/21/21 Date of : 32 Report #: [id number] [facility] ED Test Date: 2021-01-21 Test Time: 00:48:18 Pat Name: TIBURCIO LOVING Department: Room: Gender: F Yield Engineer: anuel : 1930 Requested By: Estefania Gallagher Order Number: [id number] MD: Carl Judd Measurements Intervals [place] Rate: 61 P: 81 [place]: 159 QRS: -66 QRSD: 107 T: 29 QT: 531 QTc: 535 Interpretive Statements Sinus rhythm Probable left atrial enlargement Inferior infarct, old Probable anterior infarct, age indeterminate Prolonged QT interval Compared to ECG 04/14/2020 17:08:28 No significant changes Electronically Signed On 01-21-2021 12:38:55 CDT by Carl Judd [email or web address] <ELECTRONICALLY SIGNED> By: Carl Judd MD, [facility] 01/21/21 1238 0048 Carl Judd MD, FAC /EPI
== END 2021-01-21 05:24 ==
LOC: ER 00:40
DX: S62.641A Nondisplaced fracture of proximal phalanx of left index finger, initial encounter for closed fracture (principal); S62.643A Nondisplaced fracture of proximal phalanx of left middle finger, initial encounter for closed fracture; S62.645A Nondisplaced fracture of proximal phalanx of left ring finger, initial encounter for closed fracture; S00.83XA Contusion of other part of head, initial encounter; F32.9 Major depressive disorder, single episode, unspecified; I10 Essential (primary) hypertension; E78.00 Pure hypercholesterolemia, unspecified; J44.9 Chronic obstructive pulmonary disease, unspecified; Z79.899 Other long term (current) drug therapy; Z88.2 Allergy status to sulfonamides; W06.XXXA Fall from bed, initial encounter; Y93.89 Activity, other specified; Y92.89 Other specified places as the place of occurrence of the external cause; Y99.8 Other external cause status